=== PATIENT | male | born 2000 | race African-American/Black ===

== ENCOUNTER 2018-08-31 09:26 | Day surgery (SDC) | payer BC ==
[~2018-08-31] VITALS: Ht 193 cm; Wt 106.6 kg
[2018-08-31] MEDS ORDERED: IBUPROFEN600 MG (10:30)
[2018-08-31 10:47] VITALS: BP 136/79; Ht 193 cm; Wt 106.6 kg
[2018-08-31] MEDS ORDERED: HYDROCODON-ACE1 EA10 PO (12:58)
--- NOTE | 2018-09-03 11:22 | OP ---
PATIENT NAME: LULA ZAVALA MEDICAL RECORD: [id number] :98 LOCATION:[facility] ADMISSION DATE: SURGEON: JUNIOR SILVEIRA MD DATE OF OPERATION: 08/31/2018 PREOPERATIVE DIAGNOSIS: Mid shaft fracture of the right long finger metacarpal. POSTOPERATIVE DIAGNOSIS: Mid shaft fracture of the right long finger metacarpal. PROCEDURE: Open reduction internal fixation of right midshaft long finger fracture. SURGEON: Junior Silveira MD ANESTHESIA: General. INTRAOPERATIVE COMPLICATIONS: None. SUMMARY OF PATHOLOGIC FINDINGS: Essentially, the patient had 2 fractures. He fractured his finger and then approximately 3 weeks later he fractured again. He came to see me a week after that and his surgery was delayed after that, so this has become all but a malunion and required a substantial manipulation to put back in anatomic alignment. OPERATIVE SUMMARY IN DETAIL: After obtaining the appropriate preoperative orthopedic surgery consent as well as anesthetic consultation, evaluation and clearance, the patient was brought to the operating room and placed on the operating table in supine position. After adequate general laryngeal mask airway was administered, tourniquet was placed about the proximal aspect of the right upper extremity. Right upper extremity was then prepped and draped in routine sterile fashion. The arm was elevated and exsanguinated, tourniquet inflated to 250 mmHg. Midline incision was made over the dorsal aspect of the metacarpal. Care was taken to avoid the extensor mechanism. This were retracted both radially and ulnarly. The fracture was identified and a substantial reduction maneuver was performed to realign the finger in both planes as seen on fluoroscopy. The [place] VariAx 8-hole plate was utilized that is the 3.0 plate with 2.3 mm bone screws. A combination of both compression and locking screws were used to fix the fracture. This was evaluated on AP and lateral planes as well as oblique. Final radiographs were submitted for radiologist review. The wound was copiously irrigated and closed with 2-0 Vicryl followed by 4-0 Prolene. Sterile dressings were applied. Tourniquet was deflated. The patient was awakened, taken to recovery in stable condition. All final needle and sponge counts were correct. TRANSINT:[id number] Voice Confirmation ID: [id number] DOCUMENT ID: [id number] OPERATIVE REPORT [id number] LULA ZAVALA MD, JUNIOR GARCIA at 1122 CC: [id number] DICTATION DATE: 08/31/18 1300 [employer] COUNSELOR: 08/31/18 1412 [facility] [place] 08/31/18 [id number] [place] [address]
== END 2018-08-31 14:50 | disposition home or self-care (01) ==
LOC: D.OPS 09:26 → EDSEX 17:30 → D.OPS 17:30
PROVIDERS: ATTEND Orthopaedic Surgery
DX: S62.322A Displaced fracture of shaft of third metacarpal bone, right hand, initial encounter for closed fracture (principal); X58.XXXA Exposure to other specified factors, initial encounter; Z01.812 Encounter for preprocedural laboratory examination